=== PATIENT | female | born 1980 | race Caucasian/White ===

== ENCOUNTER 2024-10-17 08:03 | Emergency (ER) | payer BC, SELFPAY ==
--- NOTE | 2024-10-17 08:08 | ED_ITS ---
HPI - URI/Sore Throat General Chief Complaint: Upper Respiratory Infection Stated Complaint: COUGH/CONGESTION Time Seen by Provider: 10/17/24 08:08 Source: patient Mode of arrival: ambulatory Limitations: no limitations History of Present Illness HPI Narrative: Brigid is a 44 year old female patient presenting to the clinic today with c/o productive cough with yellow phlegm, nasal congestion, and chest congestion x3 weeks. She reports she has been taking Delsym and Mucinex for her symptoms. Symptoms have not improved in the past 3 weeks. Denies any shortness of breath or chest pain. No fevers, chills, body aches. No history of COPD or asthma. Is a nonsmoker. Related Data Home Medications ?Medication ?Instructions ?Recorded ?Confirmed ?Last Taken ?Type semaglutide (weight loss) 2.4 mg subcut 10/17/24 Unkn own History mg/0.75 mL subcutaneous pen injector (Wegovy) Allergies Allergy/AdvReac Type Severity Reaction Status Date / Time No Known Allergies Allergy Verified 10/17/24 08:15 Review of Systems Review of Systems: Pertinent positives per HPI. Patient denies any fever, chills, rash, headache, visual changes, dizziness, chest pain, palpitations, nausea, vomiting, diarrhea, constipation, abdominal pain, or any urinary issues. PMFSH Comments At the time of my signature, I reviewed and agree with the nursing past medical, surgical, social, and family history. There is no relevant family history pertinent to the patient complaint. Exam Narrative: General: Well-developed, morbidly obese, in no apparent distress Head: Normocephalic, atraumatic Eyes: Pupils equally round and reactive to light bilaterally, EOM intact, sclera and conjunctive clear, no discharge, lids normal Ears: TMs intact and congested, ear canals clear, no drainage, grossly hearing normal. Nose: Nares patent, yellow nasal discharge, moderate inflammation, maxillary sinus tenderness. Mouth: Oral pharynx mildly red without lesions or masses, good dentition, MMM. PND Neck: Supple, trachea midline, no enlargement of anterior or posterior cervical nodes, no thyroid masses or goiter palpable. Cardio: Regular rate and rhythm, s1 and s2 normal, no murmur appreciated. Resp: Faint expiratory wheeze over the left upper lobe, no rhonchi, rales, or rubs Course Course Emergency Course: Portions of this record may have been created with voice recognition software. Level of Care: Express Care Visit Vital Signs Vital signs: Vital Signs Temperature 36.2 C L 10/17/24 08:16 Pulse Rate 114 H 10/17/24 08:16 Respiratory Rate 16 10/17/24 08:16 Blood Pressure 158/99 H 10/17/24 08:16 Pulse Oximetry 100 10/17/24 08:16 Temperature 36.2 C L 10/17/24 08:16 Pulse Rate 114 H 10/17/24 08:16 Respiratory Rate 16 10/17/24 08:16 Blood Pressure 158/99 H 10/17/24 08:16 Pulse Oximetry 100 10/17/24 08:16 Oxygen Delivery Room Air 10/17/24 08:17 Vital signs reviewed MDM - URI/Sore Throat MDM Narrative Medical decision making narrative: At the time of visit patient is resting comfortably on the exam table. Patient appears to be nontoxic. C/o productive cough with yellow phlegm, nasal congestion, and chest congestion x3 weeks. She reports she has been taking Delsym and Mucinex for her symptoms. Symptoms have not improved in the past 3 weeks. Denies any shortness of breath or chest pain. No fevers, chills, body aches. No history of COPD or asthma. She is a nonsmoker. On exam patient has bilateral ear congestion, yellow nasal drainage with maxillary sinus pressure/tenderness, postnasal drip-oral pharynx mildly red, faint wheezing over the left upper posterior lung field, heart rate elevated rate but regular rate rhythm. Plan: I suspect patient has acute sinusitis/bronchitis. Prescription for Augmentin, prednisone, Tessalon Perles, and albuterol inhaler. Supportive measures were discussed with the patient and they voiced understanding discharge instructions and agrees to treatment plan. Return precautions reviewed Differential Diagnosis Differential diagnosis: Likely upper respiratory infection, otitis media, sinusitis, viral infection, bronchitis, influenza, pharyngitis and other (COVID) Discharge Plan Discharge Clinical Impression: Sinobronchitis Patient Disposition: Home Condition: Stable Instructions: Antibiotic Form, Sinusitis (ED), Acute Bronchitis (ED) Additional Instructions: Take prescription medications only as prescribed- prednisone, Augmentin, albuterol inhaler, and Tessalon Perles Increase fluids and stay well hydrated May take Tylenol or motrin as directed on bottle for pain/fever May use Flonase 1 spray in each nare daily May take OTC antihistamines such as Zyrtec or Claritin daily as directed on bottle May apply Vicks vapor rub to chest to open sinuses Sinus rinses for congestion Cepacol spray, cough drops, throat lozenges, warm tea with honey/lemon, gargle salt water to soothe throat BRAT diet for diarrhea Clear liquids x 24 hours then advance as tolerated for nausea/vomiting Go to the ED if you develop a worsening in your condition- high fever not controlled by Tylenol or Motrin, dehydration, weakness, lethargy, shortness of breath, or chest pain. Follow up with your PCP in 3-5 days if symptoms persist. Patient Language: Monegasque Prescriptions: New benzonatate 200 mg capsule 200 mg PO TID 7 Days Qty: 21 0RF prednisone 20 mg tablet 40 mg PO DAILY 5 Days Qty: 10 0RF albuterol sulfate 90 mcg/actuation HFA aerosol inhaler 2 puff inhalation Q4-6H PRN (Reason: shortness of breath or wheezing) 30 Days Qty: 8.5 0RF amoxicillin-pot clavulanate 875-125 mg tablet 1 tablet PO Q12H 10 Days Qty: 20 0RF No Action Wegovy 2.4 mg/0.75 mL pen injector SUBCUT Follow-up/Referrals: Linda,Merly [Other] Time of Disposition: 08:20 Quality NIHSS Nursing Documentation ED NIHSS nursing documentation: reviewed/agree
[2024-10-17 08:16] VITALS: BP 158/99; PULSE 114; RESP 16; TEMP 36.2; O2SAT 100
== END 2024-10-17 08:26 | disposition home or self-care (01) ==
PROVIDERS: Emergency Provider Nurse Practitioner Family
DX: J32.9 Chronic sinusitis, unspecified (principal); J40 Bronchitis, not specified as acute or chronic
CPT/HCPCS: 99203; G0463